=== PATIENT | female | born 1980 | race Caucasian/White ===

== ENCOUNTER 2021-09-17 15:38 | Inpatient (IN) | payer MEDICAID ==
[~2021-09-17] VITALS: Ht 152.4 cm; Wt 70.8 kg
[2021-09-17 15:35] VITALS: BP 106/76
--- NOTE | 2021-09-17 15:35 | NUR ---
PT ARRIVED TO UNIT VIA GURNEY FROM [facility]. PT IS AWAKE AND ALERT. A&OX4. ON 3L O2 NC WITH BREATHING UNLABORED. COUGHING, NONPRODUCTIVE PRESENT. O2 SAT IS 90%. ST ON TELE MONITOR. PT AMBULATED TO THE BED STEADILY. SKIN IS WARM, DRY, AND INTACT. PICC LINE IN PLACE ON THE RIGHT UPPER ARM. DOUBLE LUMEN WITH BOTH LINES FLUSHING SLOWLY. PT DENIES PAIN. PT IS STABLE. COVID POSITIVE WITH DROPLET PRECAUTIONS IN PLACE. RECEIVED REPORT FROM PAOLA FISHER FROM [facility].
[2021-09-17] MEDS ORDERED: ONDANSETRON 4 MG/2 ML VIAL IVP PRN (16:20)
[2021-09-17] MEDS ORDERED: MAG SULF 2000 MG/WATER PREMIX 50 ML IV PRN (16:20)
[2021-09-17] MEDS ORDERED: SODIUM PHOS / POTASSIUM PHOS 1 PKT PDR PO PRN (16:20)
[2021-09-17] MEDS ORDERED: LORazepam 2 MG/ML VIAL IM/IVP PRN (16:20)
[2021-09-17] MEDS ORDERED: HYDROcodone/APAP 5/325 MG 1 TAB TAB PO PRN (16:20)
[2021-09-17] MEDS ORDERED: ACETAMINOPHEN 325 MG TAB PO PRN (16:20)
[2021-09-17] MEDS ORDERED: MORPHINE SULFATE 2 MG/ML SYR IVP PRN (16:20)
[2021-09-17] MEDS ORDERED: POTASSIUM CHLORIDE 10 MEQ TABER PO PRN (16:20)
[2021-09-17] MEDS ORDERED: ALBUTEROL HFA MDI 90 MCG/ACTUATION 8 GM INH PRN (16:20)
[2021-09-17] MEDS ORDERED: DOCUSATE SODIUM 100 MG GELCAP PO PRN (16:20)
--- NOTE | 2021-09-17 17:00 | NUR ---
NOVEL COVID SWAB COLLECTED AND SENT TO THE LAB.
--- NOTE | 2021-09-17 18:00 | NUR ---
PT IS UP TO THE SINK, GROOMING SELF. NO DISTRESS NOTED ON 3L O2 NC. BREATHING IS UNLABORED. INTERMITTENT COUGHING NOTED, NON PRODUCTIVE. PT DENIES PAIN OR DIFFICULTY BREATHING. WILL CONTINUE TO MONITOR.
--- NOTE | 2021-09-17 18:38 | NUR ---
PT STATES SHE HAS NO KNOWN ALLERGIES. THIS WAS ENTERED AND SAVED INTO THE SYSTEM. PHARMACY WAS NOTIFIED.
[2021-09-17] MEDS: NACL 0.9% 1,000 ML IV SCH (18:57)
--- NOTE | 2021-09-17 19:19 | NUR ---
ENDORSED PT TO PARTS COUNTERPERSON NURSE FOR CONTINUITY OF CARE. PT IS STABLE. PLAN OF CARE DISCUSSED.
--- NOTE | 2021-09-17 19:20 | NUR ---
ENDORSED TO [employer] LEAD NURSE TO GIVE THE DEXAMETHASONE SCHEDULED AT 1999. WAS TOLD BY PHARMACIST TO PASS ALONG THIS MESSAGE TO [employer] LEAD NURSE.
--- NOTE | 2021-09-17 19:30 | NUR ---
Received patient from am shift nurse. Patient is A&Ox4 able to make needs known, no s/s of distress, denies chest pain or SOB. Chest rise is even and unlabored with diminished lung sounds on 3L of O2 via NC. Normal hear sounds S1 & S2 present, Active bowel sounds x4 heard on auscultation, no ABD tenderness on palpation. Will continue to monitor patient throughout the shift.
--- NOTE | 2021-09-17 19:58 | NUR ---
PT WAS SEEN AND ASSESSED. PT ON NASAL CANNULA. SPO2 92%. PT IS IN NO RESPIRATORY DISTRESS AT THIS TIME. WILL CONTINUE TO MONITOR PT.
[2021-09-17 20:00] VITALS: BP 93/57
[2021-09-17] MEDS: ZINC SULF 220 MG CAP PO SCH (20:42)
[2021-09-17 21:42] LABS: BASOPHILS % (AUTO) 0.3 % (0.0-2.0); EOSINOPHILS # (AUTO) 0.1 K/uL (0-0.4); EOSINOPHILS % (AUTO) 1.1 % (0.0-4.0); HEMATOCRIT 37.6 % (36-48); HEMOGLOBIN 12.8 g/dL (12.0-16.0); LYMPHOCYTES # (AUTO) 1.2 K/uL (2.5-16.5); MEAN CORPUSCULAR HEMOGLOBIN 30 pg (27-31); MEAN CORPUSCULAR HGB CONC 34 g/dL (33-37); MEAN CORPUSCULAR VOLUME 88.6 fL (80-94); MONOCYTES # (AUTO) 1.1 K/uL (0.8-1.0); MONOCYTES % (AUTO) 10.8 % (1.7-9.3); NEUTROPHILS # (AUTO) 7.5 K/uL (1.8-7.7); NEUTROPHILS % (AUTO) 75.8 % (42.2-75.2); PLATELET COUNT (AUTO) 484 K/uL (140-450); RED BLOOD CELL COUNT(AUTO) 4.24 MIL/uL (4.20-5.40); RED CELL DISTRIBUTION WIDTH 12.8 % (11.6-13.7); WHITE BLOOD COUNT (AUTO) 9.9 K/uL (4.8-10.8)
[2021-09-17 21:55] LABS: PROTHROMBIN TIME 10.4 secs (10.8-13.4)
[2021-09-17 22:07] LABS: ALBUMIN 2.6 g/dL (3.4-5.0); ANION GAP 10.6 (8-16); CARBON DIOXIDE 29.8 mmol/L (21-32); CREATININE 0.6 mg/dL (0.6-1.3); FREE T4 (FREE THYROXINE) 1.09 ng/dL (0.76-1.46); POTASSIUM 4.4 mmol/L (3.5-5.1); TOTAL BILIRUBIN 0.4 mg/dL (0.0-1.0)
[2021-09-17 22:18] LABS: CHOL/HDL RATIO 2.3 (1-4.5)
[2021-09-17 22:19] LABS: MAGNESIUM 2.1 mg/dL (1.8-2.4); PHOSPHORUS 4.1 mg/dL (2.5-4.9); THYROID STIMULATING HORMONE 2.15 uIU/mL (0.34-3.74)
[2021-09-17] MEDS: ZOLPIDEM 5 MG TAB PO PRN (23:19)
[2021-09-18] VITALS: BP 99/78
--- NOTE | 2021-09-18 | NUR ---
Patient is sleeping no s/s of distress is noted at this time. Call light is within reach, bed is in the lowest position with bed rails up. Patient is stable will continue to monitor throughout shift for changes.
[2021-09-18 04:00] VITALS: BP 96/58
--- NOTE | 2021-09-18 07:10 | NUR ---
RECEIVED BEDSIDE REPORT FROM BLASTING WORKER NURSE FOR CONTINUITY OF CARE. PT IS AWAKE AND ALERT. A&OX4. ON 3L O2 NC WITH BREATHING UNLABORED. ON TELE MONITOR. PT IS AMBULATORY INDEPENDENTLY. SKIN IS WARM ,DRY, AND INTACT. RIGHT UPPER ARM PICC LINE IN PLACE RUNNING FLUIDS ORDERED. PT IS STABLE. PLAN OF CARE DISCUSSED.
[2021-09-18 08:00] VITALS: BP 122/62
[2021-09-18] MEDS: ZINC SULF 220 MG CAP PO SCH ×2 (09:14→21:16)
[2021-09-18] MEDS: VITAMIN D 400 IU TAB PO SCH (09:14)
[2021-09-18] MEDS: ASCORBIC ACID 500 MG TAB PO SCH (09:14)
[2021-09-18] MEDS: ENOXAPARIN 40 MG/0.4 ML SYR SUBQ SCH (09:15)
--- NOTE | 2021-09-18 09:15 | NUR ---
PATIENT HAS BEEN SCREENED AND CATEGORIZED MODERATE NUTRITION RISK. PATIENT WILL BE SEEN WITHIN 3-5 DAYS OF ADMISSION. 09/18/21 09/22/[address]
--- NOTE | 2021-09-18 09:30 | NUR ---
DR. SIMMS AT BEDSIDE. EXPLAINED CT ANGIO CHEST WITH CONTRAST. RISKS AND BENEFITS DISCUSSED. ALL QUESTIONS ANSWERED. CONTRAST QUESTIONAIRE ANSWERED BY PT. CONSENT WAS SIGNED. CALLED [facility] AND THEY WILL BE ARRIVING TO UNIT AT 1130, 2 HOURS AFTER PATIENT ATE BREAKFAST.
[2021-09-18] MEDS: NACL 0.9% 1,000 ML IV SCH (10:24)
--- NOTE | 2021-09-18 11:30 | NUR ---
ROUNDED ON PT. SHE IS AWAKE, SITTING UP IN BED. NO DISTRESS NOTED. ON 3L O2 NC WITH BREATHING UNLABORED. PT DENIES PAIN. COUGHING IS APPARENT, NON PRODUCTIVE. PT WAS GIVEN WATER REQUESTED.
[2021-09-18 12:00] VITALS: BP 91/73
--- NOTE | 2021-09-18 13:20 | NUR ---
PT WAS TAKEN TO CT ANGIO CHEST VIA WHEELCHAIR BY TWO TECHS AND RN. PT IS ON 3L O2 NC AND DENIES ANY SOB. PT IS STABLE.
--- NOTE | 2021-09-18 13:40 | NUR ---
PT IS BACK FROM CT ANGIO CHEST VIA WHEELCHAIR. PT TOLERATED CONTRAST WELL. NO SIGNS/SYMPTOMS OF ADVERSE REACTIONS. BREATHING IS UNLABORED ON 3L O2 NC. PT IS BACK IN BED, TALKING ON PHONE TO FAMILY.
--- NOTE | 2021-09-18 15:01 | NUR ---
DC PLANNING: THE PATIENT WAS A DIRECT ADMIT FROM [facility] WITH DX OF COVID 19 AND R/O ASPERGILLUS. NANCY SPOKE WITH THE PATIENT'S BY PHONE REGARDING DC PLANNING. SHE LIVES IN A SINGLE STORY HOUSE WITH HER SPOUSE, SON, DAUGHTER AND GODSON. SHE IS COMPLETELY INDEPENDENT IN ALL ACTIVITIES AND IS A STAY AT HOME MOM. SHE DOESN'T HAVE A PCP BUT DOES SEE A PHYSICIAN ANNUALLY FOR A PHYSICAL. NANCY DISCUSSED THE POSSIBILITY OF HOME O2 WHICH WOULD BE OUT OF POCKET THE PATIENT HAS PRESUMPTIVE M/RENEE. HER STATES THAT THEY WILL BE ABLE TO PAY FOR IT IF NEEDED. DC PLAN IS FOR THE PATIENT TO RETURN HOME WITH FAMILY WHEN CLINICALLY STABLE, NANCY WILL FOLLOW FOR NEEDS. Addendum: 09/19/21 at 1244 by Lynn Ramos CM DC PLANNING: ORDER RECEIVED FOR HOME O2, THE PATIENT HAS A CONCENTRATOR AND PORTABLE O2 IN HER ROOM THAT WAS SENT WITH HER FROM [facility]. O2 IS FROM [facility]. NANCY SPOKE WITH THE PATIENTS MISSAEL TO LET HIM KNOW, AND ALSO NOTIFIED DR. SIMMS WHO STATES THE PATIENT WILL DC TODAY, NANCY ALSO NOTIFIED HER RN CROW. NANCY WILL FOLLOW FOR NEEDS.
--- NOTE | 2021-09-18 15:45 | NUR ---
ROUNDED ON PT. SHE IS AWAKE IN BED. NO RESPIRATORY DISTRESS NOTED. PT IS ON 3L O2 NC. IV FLUIDS ARE INFUSING THROUGH PICC LINE. PT DENIES PAIN. WILL MONITOR.
[2021-09-18 16:00] VITALS: BP 96/58
--- NOTE | 2021-09-18 17:46 | NUR ---
PT IS AWAKE AND ALERT. NO DISTRESS NOTED ON 3L O2 NC. NO COUGHING AT THIS TIME. PT IS IN BED AND STABLE.
--- NOTE | 2021-09-18 19:16 | NUR ---
ENDORSED PT TO MEDIC TECHNICIAN NURSE FOR CONTINUITY OF CARE. PT IS STABLE AT THIS TIME. AWAKE AND ALERT WITH FAMILY AT BEDSIDE. PLAN OF CARE DISCUSSED.
--- NOTE | 2021-09-18 19:30 | NUR ---
Received patient from the AM shift nurse. Patient is AAOx4 able to make needs known, no s/s of distress, denies chest pain or SOB. Chest rise is even and unlabored with diminished breath sounds upon auscultation. Normal heart sounds S1 & S2 present with SR/ST rhythm. Active bowel sounds x4, with no ABD tenderness upon palpation. Skin is free of wounds upon assessment. Patient is talking to family and in good spirits. Call light is within reach, bed is in the lowest position with bed rails up. Will continue to monitor throughout the shift.
[2021-09-18 20:00] VITALS: BP 106/63
[2021-09-18] MEDS: ZOLPIDEM 5 MG TAB PO PRN (22:51)
[2021-09-19] VITALS: BP 102/59
--- NOTE | 2021-09-19 00:02 | NUR ---
Patient is Awake and watching television. Urine specimen was collected as ordered. No s/s of distress is noted at this time, patient denies pain. All current needs have been met. Will continue to monitor for status change.
[2021-09-19 01:11] LABS: APPEARANCE,URINE CLEAR (CLEAR); BILIRUBIN,URINE NEGATIVE (NEGATIVE); BLOOD, URINE NEGATIVE (NEGATIVE); COLOR,URINE YELLOW (YELLOW); LEUKOCYTE ESTERASE ,URINE NEGATIVE (NEGATIVE); NITRITE, URINE NEGATIVE (NEGATIVE); PH,URINE 6.5 (5.0-9.0); UGLUCOSE NEGATIVE (NEGATIVE)
[2021-09-19 01:17] LABS: BARBITURATE, URINE NEGATIVE ng/ml (NEG <=200); BENZODIAZEPINE, URINE NEGATIVE ng/mL (NEG <=200); CANNABINOID, URINE NEGATIVE ng/mL (NEG <=50); COCAINE, URINE NEGATIVE ng/mL (NEG <=300); OPIATE, URINE NEGATIVE ng/mL (NEG <=2000); PHENCYCLIDINE SCREEN,URINE NEGATIVE ng/mL (NEG <=25)
[2021-09-19 04:00] VITALS: BP 100/56
--- NOTE | 2021-09-19 06:34 | NUR ---
Patient is currently resting with no s/s of distress at this time. Patient is A&Ox4 able to verbalize needs and has call light within reach. Will endorse further care to AM shift nurse for continuity of care.
[2021-09-19 08:00] VITALS: BP 94/43
[2021-09-19] MEDS: ASCORBIC ACID 500 MG TAB PO SCH (08:16)
[2021-09-19] MEDS: ZINC SULF 220 MG CAP PO SCH (08:16)
[2021-09-19] MEDS: VITAMIN D 400 IU TAB PO SCH (08:16)
[2021-09-19] MEDS: ENOXAPARIN 40 MG/0.4 ML SYR SUBQ SCH (08:20)
[2021-09-19] MEDS: NACL 0.9% 1,000 ML IV SCH (08:38)
[2021-09-19 12:00] VITALS: BP 90/47
[2021-09-19] MEDS ORDERED: DEC1 PO (12:58)
[2021-09-19] MEDS ORDERED: ASPI-1205 PO (12:58)
--- NOTE | 2021-09-19 14:36 | NUR ---
Written and verbal discharge instructions provided to patient. Demonstrated proper use of portable O2 tank and O2 concentrator. Patient verbalized understanding and was able to return demonstrate instructions provided. Right upper arm PICC discontinued, cannula intact, site covered with gauze and transparent dressing.
--- NOTE | 2021-09-19 16:15 | NUR ---
Patient discharged at this time with portable O2 tank on 3L/min via n/c, and O2 concentrator. Pt left unit via wheelchair, all belongings with patient upon departure. Pt's mother waiting in front lobby for transport.
== END 2021-09-19 16:15 | disposition home or self-care (01) | DRG 137 ==
LOC: MTU 15:38
PROVIDERS: ADMIT Family Medicine; ATTEND Family Medicine
PROC: XW033E5 Introduction of Remdesivir Anti-infective into Peripheral Vein, Percutaneous Approach, New Technology Group 5 (ICD-10-PCS; principal; 2021-09-18)
DX: U07.1 COVID-19 (principal); J96.01 Acute respiratory failure with hypoxia; J12.82 Pneumonia due to coronavirus disease 2019; E43 Unspecified severe protein-calorie malnutrition; D68.59 Other primary thrombophilia; Z68.30 Body mass index [BMI] 30.0-30.9, adult
CPT/HCPCS: 36415; 71045; 71250; 71275; 80053; 80305; 81003; 82150; 83036; 83690; 83735; 83880; 84100; 84439; 84443; 84484; 85025; 85610; 85730; 87040; 87081; 87086; 87186; J1650; Q0092; Q9967; U0003